=== PATIENT | male | born 1965 | race Caucasian/White ===

== ENCOUNTER 2023-02-09 09:02 | Outpatient (CLI) | payer BC, SELFPAY ==
--- NOTE | 2023-02-09 09:16 | XRR_ITS ---
PROCEDURE INFORMATION: Exam: XR Chest Exam date and time: 02/09/2023 9:27 AM Age: 57 years old Clinical indication: Cough with hemorrhage; Patient HX: Coughing up blood for 1 wk; Additional info: Hemoptysis TECHNIQUE: Imaging protocol: Radiologic exam of the chest. Views: 2 views. COMPARISON: No relevant prior studies available. FINDINGS: Lungs: Unremarkable. No consolidation. Pleural spaces: Unremarkable. No pleural effusion. No pneumothorax. Heart/Mediastinum: Unremarkable. No cardiomegaly. Bones/joints: Unremarkable. XR/XR chest 2V* [id number] IMPRESSION: No acute findings.
== END 2023-02-09 09:03 | disposition home or self-care (01) ==
PROVIDERS: PCP Nurse Practitioner Family; Visit Provider Nurse Practitioner Family
DX: R04.2 Hemoptysis (principal)
CPT/HCPCS: 71046

== ENCOUNTER 2023-02-16 22:01 | Emergency (ER) | payer BC, SELFPAY ==
[2023-02-16 22:20] VITALS: BP 125/77; PULSE 75; RESP 16; TEMP 36.4; O2SAT 98; BMI 21.1
--- NOTE | 2023-02-16 22:54 | USR_ITS ---
PROCEDURE INFORMATION: Exam: US Duplex Right Lower Extremity Arteries Or Arterial Bypass Grafts Exam date and time: 02/16/2023 11:11 PM Age: 58 years old Clinical indication: Other: Right cold foot x 10 days per patient; Additional info: Pain, cold limb, slowed cap refill, suspect diminished arterial TECHNIQUE: Imaging protocol: Right Real-time duplex scan of the arteries or arterial bypass grafts of the right lower extremity with 2-D ryder scale, color Doppler flow and spectral waveform analysis. Images documented and saved. COMPARISON: No relevant prior studies available. FINDINGS: Right external iliac artery: Right iliac artery: No detectable flow. Right common femoral artery: No occlusion. Abnormal, blunted monophasic waveform. No pseudoaneurysm in the inguinal region. Peak systolic velocity (PSV) 35 cm/s Right superficial femoral artery: No occlusion. Abnormal waveform. PSV 37 cm/s Right popliteal artery: No occlusion. Abnormal, monophasic waveform. Right calf/foot arteries: Posterior tibial artery ([employer]), no detectable flow. Dorsalis pedis artery (DPA), no detectable flow. Soft tissues: No hematoma or collection. US/[place] [id number] IMPRESSION: 1. No detectable flow in the right external iliac artery, which is likely occluded or severely stenosed. 2. Abnormal waveforms and low velocities in the right common femoral, femoral and popliteal arteries consistent with reconstituted vessels or vessels distal to a severe proximal stenosis. 3. No flow detected in the right [employer] or DPA. 4. Consider vascular surgery consult, CTA of the abdominal aorta and bilateral lower extremity runoff, if clinically indicated. THIS REPORT CONTAINS FINDINGS THAT MAY BE CRITICAL TO PATIENT CARE. The findings were verbally communicated via telephone conference with SUNDAR THOMASON at 12:59 AM CDT on 02/17/2023. The findings were acknowledged and understood.
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
[2023-02-16 23:32] LABS: Basophils # 0.1 10^3/uL (0.0-0.1); Basophils % 0.3 %; Eosinophils # 0.1 10^3/uL (0.0-0.8); Eosinophils % 0.3 %; Hematocrit 42.8 % (37-53); Lymphocytes # 1.1 10^3/uL (0.8-4.8); Mean Platelet Volume 9.3 fL (7.4-10.4); Monocytes # 0.8 10^3/uL (0.2-0.9); Neutrophils # 16.54 10^3/uL (1.8-7.7); Neutrophils % 88.5 %; Nucleated Red Blood Cells % 0 %; Platelet Count 340 10^3/cmm (157-399); Red Blood Count 4.28 10^6/uL (3.85-5.65); Red Cell Distribution Width 13.2 % (12.1-15.1); White Blood Count 18.68 10^3/uL (3.29-11.43)
[2023-02-16 23:46] LABS: Alanine Aminotransferase 11 U/L (0-41); Albumin Level 4.2 g/dL (3.5-5.2); Alkaline Phosphatase 81 U/L (40-130); Anion Gap 14.3 (5-19); Aspartate Amino Transferase 17 U/L (0-40); Blood Urea Nitrogen 19 mg/dL (8-23); Calcium 9.8 mg/dL (8.5-10.5); Carbon Dioxide 26 mmol/L (22-29); Chloride 99 mmol/L (98-107); Creatine Phosphokinase 118 U/L (39-308); Globulin 2.8 g/dL (1.3-4.6); Glomerular Filtration Rate 98.6 mL/min (90-130); Glucose 238 mg/dL (65-115); Osmolality Calculated 288 mOsm/kg (285-295); Potassium 5.3 mmol/L (3.5-5.1); Sodium 134 mmol/L (136-145); Total Bilirubin 0.2 mg/dL (0.15-1.2)
[2023-02-16 23:48] LABS: INR 0.99 (0.8-1.2)
[2023-02-16 23:49] LABS: Partial Thromboplastin Time 25.7 SECONDS (23.9-36.7)
[2023-02-17] VITALS (7 sets, daily range): BP systolic 118–152; BP diastolic 57–86; PULSE 61–72; RESP 16; O2SAT 94–97
[2023-02-17] MEDS: morphine 4 mg/mL SDV 1 mL IVP ×3 (00:03→06:15)
[2023-02-17 00:15] LABS: Lactic Sepsis W/Reflex 1.1 mmol/L (0.5-2.2)
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
[2023-02-17] MEDS: iohexol 350 mg/mL 500 mL Btl (per mL) IV (02:54)
[2023-02-17 05:55] LABS: Platelet Count 335 10^3/cmm (157-399)
[2023-02-17] MEDS: heparin 5,000 unit/mL INJ 1 mL IV (05:55)
[2023-02-17] MEDS: heparin drip 25,000 UNIT/500 ML PREMIX 17.15 UNIT IV (05:57)
[2023-02-17 06:35] LABS: Add Urine Microscopic? NO; Charge for UA Resulting for Rev
[2023-02-17 06:43] LABS: Bilirubin Urine Neg (Negative); Blood Urine Neg (Negative); Glucose Urine UA Norm (Normal); Ketones Urine Negative (Negative); Leukocyte Esterase Urine Negative (Negative); Nitrate Urine Negative (Negative); Protein Urine Neg (Negative); Specific Gravity, Urine 1.015 (1.005-1.030); Urine Appearance Clear (CLEAR); Urine Color Yellow (Yellow); Urobilinogen Urine Norm (Negative); pH Urine 5 (5-7)
== END 2023-02-17 08:49 | disposition short-term general hospital (02) ==
PROVIDERS: Physician Assistant; Emergency Provider Family Medicine; PCP Nurse Practitioner Family
DX: I99.8 Other disorder of circulatory system (principal); Z72.0 Tobacco use
CPT/HCPCS: 36415; 73706; 80053; 81003; 82550; 83605; 85025; 85049; 85610; 85730; 87040; 93926; 96374; 96375; 99285; J1644; J2270; Q9967